=== PATIENT | male | born 1960 | race African-American/Black ===

== ENCOUNTER 2022-04-02 15:17 | Emergency (ER) | payer MEDICAID ==
[~2022-04-02] VITALS: Ht 182.9 cm; Wt 78.0 kg
[2022-04-02] MEDS ORDERED: KETOROLAC 30MG/ML INJ (FOR IM ONLY) IM ONE (20:45)
[2022-04-02] MEDS ORDERED: KETOROLAC 30MG/ML VIAL IM NR (21:00)
[2022-04-02] MEDS ORDERED: P20 MT (21:23)
[2022-04-02] MEDS ORDERED: HYDR-4001 MT (21:23)
[2022-04-02 21:29] VITALS: BP 112/77
== END 2022-04-02 21:31 | disposition home or self-care (01) ==
LOC: ER 15:17
DX: M54.12 Radiculopathy, cervical region (principal)
CPT/HCPCS: 72040; 96372; 99283; J1885